=== PATIENT | male | born 2000 | race African-American/Black ===

== ENCOUNTER 2024-06-11 17:44 | Emergency (ER) | payer OTHER, SELFPAY ==
[2024-06-11 17:44] VITALS: BP 137/73; PULSE 68; RESP 18; TEMP 36.2; O2SAT 100; BMI 20.9
--- NOTE | 2024-06-11 18:04 | EDS_ITS ---
HPI History of Present Illness HPI Narrative: Patient presents with left ankle and foot injury that occurred yesterday. Patient states he was playing basketball. Patient states that he twisted his ankle at that time. Patient states he noted increased swelling today. Patient states his pain is worse with standing flat on his feet. Patient states it is better with rest. Patient denies any paresthesias or weakness. Patient denies any other injuries. Patient denies any pain over the fifth metatarsal. Patient denies any pain over the proximal fibula. Patient states that he felt a pop in his ankle yesterday. Chief Complaint: Lower Extremity Injury Informant: patient Occured/Mechanism Comment: Playing basketball Onset/Context/Timing Onset: Yesterday Context: Sudden Onset Timing: Continuous Location: Left ankle Worsened by: Standing flat on left foot Relieved by: Rest Associated Symptoms Associated Symptoms: Negative for Parasthesia, Weakness or Loss of Funtion [facility] Medical History (Updated 06/11/24 @ 19:[address] Kit Zamudio DO) Hx of neck injury Home Medications ?Medication ?Instructions ?Recorded ?Last Taken ?Type NK 06/11/24 Unknown History Allergy/AdvReac Type Severity Reaction Status Date / Time No Known Allergies Allergy Verified 06/11/24 17:44 Surgical History (Updated 06/11/24 @ 18:[address] Kit Zamudio DO) Hx of oral surgery Social History Smoking Status: Current every day smoker tobacco type: smokeless tobacco ROS ROS ED Constitutional Constitutional ED: Denies chills or fever(s) Eyes Eyes: Denies blurry vision or change in vision ENT ENT ED: Denies rhinorrhea or sore throat Cardiovascular Cardiovascular: Denies chest pain or palpitations Respiratory/Chest Respiratory/Chest: Denies cough or dyspnea Gastrointestinal Gastrointestinal: Denies nausea or vomiting Genitourinary Genitourinary ED: Denies dysuria or hematuria Musculoskeletal Musculoskeletal: Denies back pain or neck pain Integumentary Denies abscess or rash Neurologic Neurologic: Denies headache(s) or weakness Allergic/Immunologic Allergic/Immunologic ED: Denies mouth swelling or urticaria EXAM Physical Exam Const Vital Signs: 06/11/24 17:44 Temperature 97.2 F L Temperature Source Temporal Pulse Rate 68 Respiratory Rate 18 Blood Pressure 137/73 H Blood Pressure Mean 94 Pulse Ox 100 Oxygen Delivery Method Room Air Positive well nourished and well developed General Appearance ED: well developed and NAD HEENT Reports moist mucous membranes Neck full ROM and supple Extremity Extremity Narrative: There is tenderness and edema over the medial aspect of the left ankle. There is no obvious deformity noted. Range of motion was limited in all motions of the left ankle secondary to pain. Pedal pulses are equal bilaterally. Sensation was intact to light touch in all digits. Capillary refill was less than 2 seconds in all digits. Neuro oriented x3, CN's II-XII intact bilaterally, moves all extremities and no sensory deficits noted Sensorium / Orientation: alert Motor Exam: strength 5/5 throughout Psych mental status grossly normal MDM MDM MDM Narrative Medical decision making narrative: Differential diagnosis includes fracture, sprain, and contusion. X-rays of the left ankle will be obtained to assess for fracture. X-rays of the left foot will be obtained to assess for fracture. Radiography Diagnostic Testing: Clinical Impression(s) from Imaging Studies Ankle X-Ray 06/11/24 18:20 IMPRESSION: Normal x-ray examination of the ankle. Electronically Signed: Saran Garcia MD at 18:55 EDT , Foot X-Ray 06/11/24 18:28 IMPRESSION: Normal x-ray examination of the foot. Electronically Signed: Saran Garcia MD at 18:55 EDT , X-rays of the left ankle were obtained. There are 3 views. On my independent interpretation, there is no acute fracture. There is no dislocation. There is no soft tissue swelling. Radiologist also interpreted the x-rays and agrees. X-rays of the left foot were obtained. There are 3 views. On my independent interpretation, there is no acute fracture. There is no dislocation. There is no soft tissue swelling. Radiologist also interpreted the x-rays and agrees. Treatment and Re-Evaluation Narrative: Patient was advised of his findings. Patient was instructed to ice and elevate the left ankle. Patient was instructed to take Tylenol or ibuprofen as needed for pain. Patient was offered an Aircast but he declined. Patient was instructed to follow-up with his primary care physician in 5 to 7 days. Patient understood and was agreeable with the plan. All questions were answered. Discharge Plan Triage Chief Complaint: Lower Extremity Injury ED Provider: Kit Zamudio Dx/Rx/DC Orders Clinical Impression: Left ankle sprain, Tobacco use Instructions: ED Ankle Sprain (Adult) Prescriptions: No Action NK Primary Care Provider: Care Physician,No Primary Referrals: Care Physician,No Primary [Primary Care Provider] - Clinic,NOW [Non-Staff] - 5-7 Days Print Language: Latvian Disposition Disposition: Home, Self Care
--- NOTE | 2024-06-11 18:20 | RAD_ITS ---
STUDY: X-RAY - LEFT ANKLE REASON FOR EXAM: Male, 23 years old. Injury/Pain TECHNIQUE: 3 view(s) of the ankle. COMPARISON: None. FINDINGS: Normal visualized distal tibia and fibula. Normal medial and lateral malleoli. Normal tibiotalar articulation and ankle mortise. Normal visualized talus and calcaneus. The visualized subtalar, talonavicular, calcaneocuboid and tarsal articulations are normal. There is no demonstrated fracture. The soft tissue structures are unremarkable. RAD/Ankle min 3 Views IMPRESSION: Normal x-ray examination of the ankle. Electronically Signed: Saran Garcia MD at 18:55 EDT ,
--- NOTE | 2024-06-11 18:28 | RAD_ITS ---
STUDY: X-RAY - LEFT FOOT CLINICAL: Male, 23 years old. Injury/Pain TECHNIQUE: 3 view(s) of the foot. COMPARISON: None. FINDINGS: Normal talus, calcaneus, and tarsal bones. Normal visualized subtalar, talonavicular, calcaneocuboid, tarsal and tarsometatarsal articulations. Normal metatarsi. Normal metatarsophalangeal joint of the great toe. Normal tibial and fibular sesamoid bones. Normal interphalangeal joint of the great toe. Normal phalanges of the great toe. Normal second through fifth metatarsophalangeal joints. Normal interphalangeal joints and phalanges of the lesser toes. The soft tissue structures are unremarkable. There is no demonstrated fracture. RAD/Foot min 3 Views IMPRESSION: Normal x-ray examination of the foot. Electronically Signed: Saran Garcia MD at 18:55 EDT ,
--- NOTE | 2024-06-11 18:30 | NURSING ---
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 pt instructed to follow up with urgent care tomorrow 06/12/24.
[2024-06-11 19:31] VITALS: BP 140/73; PULSE 67; RESP 16; TEMP 36.4; O2SAT 98
== END 2024-06-11 19:37 | disposition home or self-care (01) ==
PROVIDERS: Emergency Provider Emergency Medicine; Visit Provider Emergency Medicine
DX: S93.402A Sprain of unspecified ligament of left ankle, initial encounter (principal); F17.220 Nicotine dependence, chewing tobacco, uncomplicated; Y93.67 Activity, basketball
CPT/HCPCS: 73610; 73630; 99282